=== PATIENT | male | born 1955 | race Hispanic/Latino ===

== ENCOUNTER 2017-05-18 16:12 | Emergency (ER) | payer OTHER ==
[~2017-05-18 16:12] MED LIST: CIPR-245 PO
[2017-05-18] MEDS ORDERED: ONDANSETRON HCL 4 MG/2 ML VIAL ONE (16:38)
[2017-05-18 16:55] LABS: BASOPHILS % (AUTO) 0.6 % (0.0-5.0); EOSINOPHILS % (AUTO) 0.2 % (0.0-8.0); HEMATOCRIT 31.4 % (42-54); LYMPHOCYTES % (AUTO) 9.2 % (21.0-51.0); MEAN CORPUSCULAR HEMOGLOBIN 21.6 pg (27.0-33.0); MEAN CORPUSCULAR HGB CONC 32.8 g/dL (32.0-36.0); MONOCYTES % (AUTO) 11.7 % (3.0-13.0); NEUTROPHILS % (AUTO) 78.3 % (40.0-77.0); NUCLEATED RED BLOOD CELLS 0.1 % (0.0-0.19); PLATELET COUNT (AUTO) 350 K/uL (130-400); RED BLOOD CELL COUNT(AUTO) 4.75 MIL/uL (4.50-6.20); RED CELL DISTRIBUTION WIDTH 19.9 % (11.0-15.5); WHITE BLOOD COUNT (AUTO) 9.3 K/uL (4.8-10.8)
[2017-05-18 17:10] LABS: CREATININE 0.8 mg/dL (0.5-1.5); POTASSIUM 4.1 mmol/L (3.5-5.1)
[2017-05-18 17:14] LABS: ALBUMIN 3.3 g/dL (3.5-5.0); BILIRUBIN,TOTAL 0.7 mg/dL (0.2-1.0)
[2017-05-18 17:48] LABS: CREATINE KINASE MB < 0.5 ng/mL (0.5-3.6); CREATINE KINASE, TOTAL 22 U/L (21-232)
== END 2017-05-18 21:07 | disposition home or self-care (01) ==
LOC: EDH 16:12
DX: E86.0 Dehydration (principal); I10 Essential (primary) hypertension; Z85.46 Personal history of malignant neoplasm of prostate; Z87.891 Personal history of nicotine dependence
CPT/HCPCS: 36415; 71045; 80053; 82550; 82553; 84484; 85025; 93005; 96361; 96374; 99285; J2405

== ENCOUNTER 2017-05-24 17:57 | Observation (INO) | payer OTHER ==
[~2017-05-24] VITALS: Ht 172.7 cm; Wt 77.8 kg
[2017-05-24] MEDS ORDERED: ONDANSETRON HCL MDV 20ML 2 MG/ML VIAL ONE ×2 (18:47→21:32)
[2017-05-24] MEDS ORDERED: MORPHINE SULFATE 4 MG/1ML SYG ONE (18:48)
[2017-05-24 19:01] LABS: BASOPHILS % (AUTO) 0.8 % (0.0-5.0); EOSINOPHILS % (AUTO) 0.4 % (0.0-8.0); HEMATOCRIT 31.7 % (42-54); MEAN CORPUSCULAR HEMOGLOBIN 21.6 pg (27.0-33.0); MEAN CORPUSCULAR HGB CONC 32.9 g/dL (32.0-36.0); MEAN CORPUSCULAR VOLUME 65.8 fL (79-99); MONOCYTES % (AUTO) 8.5 % (3.0-13.0); NEUTROPHILS % (AUTO) 78.3 % (40.0-77.0); NUCLEATED RED BLOOD CELLS 0.1 % (0.0-0.19); PLATELET COUNT (AUTO) 440 K/uL (130-400); RED BLOOD CELL COUNT(AUTO) 4.82 MIL/uL (4.50-6.20); RED CELL DISTRIBUTION WIDTH 19.3 % (11.0-15.5); WHITE BLOOD COUNT (AUTO) 9.9 K/uL (4.8-10.8)
[2017-05-24 19:10] LABS: CREATININE 0.6 mg/dL (0.5-1.5); POTASSIUM 3.6 mmol/L (3.5-5.1)
[2017-05-24] MEDS ORDERED: IOPAMIDOL-370 75 ML VIAL IV ONE (19:14)
[2017-05-24 19:15] LABS: ALBUMIN 3.3 g/dL (3.5-5.0); BILIRUBIN,TOTAL 0.4 mg/dL (0.2-1.0); TOTAL PROTEIN, SERUM 8.3 g/dL (6.0-8.3)
[2017-05-24 20:43] LABS: APPEARANCE,URINE Clear (CLEAR); BILIRUBIN,URINE Negative (NEGATIVE); COLOR,URINE Yellow (YELLOW); GLUCOSE, URINE (UA) Negative (NEGATIVE); KETONES,URINE Negative (NEGATIVE); LEUKOCYTE ESTERASE ,URINE Negative (NEGATIVE); NITRATE,URINE Negative (NEGATIVE); OCCULT BLOOD,URINE Negative (NEGATIVE); PH,URINE 6.5 (5.0-8.0); PROTEIN,URINE Negative (NEGATIVE)
[2017-05-24] MEDS ORDERED: SODIUM CHLORIDE 0.9% 1000ML 1,000 ML IV ONE (21:32)
[2017-05-24] MEDS: FAMOTIDINE/PF 20 MG/2 ML VIAL IV SCH (22:03)
[2017-05-24] MEDS ORDERED: FAMOTIDINE/PF 20 MG/2 ML VIAL IV ONE (22:04)
[2017-05-24] MEDS ORDERED: LIDOCAINE HCL-MPF 1% 2ML VIAL IJ PRN (22:15)
[2017-05-24] MEDS ORDERED: NITROGLYCERIN 0.4 MG SL TAB SL PRN (22:15)
[2017-05-24] MEDS ORDERED: POTASSIUM CHLORIDE 20 MEQ ERTAB PO PRN (22:15)
[2017-05-24] MEDS: SODIUM CHLORIDE 0.9% 1000ML 1,000 ML IV SCH (22:15)
[2017-05-24] MEDS ORDERED: ACETAMINOPHEN 325 MG TAB PO PRN ×2 (22:15)
[2017-05-24] MEDS ORDERED: CLONIDINE HCL 0.1 MG TABLET PO PRN (22:15)
[2017-05-24] MEDS ORDERED: POTASSIUM CHLORIDE 20MEQ/100ML 100 ML IV PRN (22:15)
[2017-05-24] MEDS ORDERED: ONDANSETRON HCL 4 MG/2 ML VIAL IVP PRN (22:15)
[2017-05-24] MEDS ORDERED: POTASSIUM CHLORIDE 10% ELIXIR 20 MEQ/15 ML UDCUP PO PRN (22:15)
[2017-05-25] MEDS ORDERED: MORPHINE SULFATE 4 MG/1ML SYG ONE (02:30)
[2017-05-25 03:37] VITALS: BP 140/75
[2017-05-25] MEDS ORDERED: HYDR-4377 PO (04:15)
[2017-05-25] MEDS ORDERED: PROM12.510 PO (04:15)
[2017-05-25] MEDS ORDERED: LUBI24CA2 PO (04:15)
[2017-05-25] MEDS ORDERED: TRAM50TA4 PO (04:15)
[2017-05-25] MEDS ORDERED: TEMA15CA PO (04:15)
[2017-05-25] MEDS ORDERED: PANT40TA25 PO (04:15)
[2017-05-25] MEDS ORDERED: CYCL5TAB PO (04:15)
[2017-05-25] MEDS ORDERED: DOCU100C33 PO (04:15)
[2017-05-25] MEDS ORDERED: DICL100G31 TP (04:17)
[2017-05-25 05:18] LABS: HEMATOCRIT 25.9 % (42-54); MEAN CORPUSCULAR HEMOGLOBIN 21.5 pg (27.0-33.0); MEAN CORPUSCULAR HGB CONC 32.8 g/dL (32.0-36.0); MEAN CORPUSCULAR VOLUME 65.7 fL (79-99); PLATELET COUNT (AUTO) 340 K/uL (130-400); RED BLOOD CELL COUNT(AUTO) 3.95 MIL/uL (4.50-6.20); WHITE BLOOD COUNT (AUTO) 6.6 K/uL (4.8-10.8)
[2017-05-25 05:29] LABS: CREATININE 0.5 mg/dL (0.5-1.5); POTASSIUM 3.6 mmol/L (3.5-5.1)
[2017-05-25] MEDS: SODIUM CHLORIDE 0.9% 1000ML 1,000 ML IV SCH (05:55)
[2017-05-25 07:00] VITALS: BP 140/75
[2017-05-25] MEDS ORDERED: METOCLOPRAMIDE 10 MG/2 ML VIAL IVP SCH (07:30)
[2017-05-25] MEDS: FAMOTIDINE/PF 20 MG/2 ML VIAL IV SCH ×2 (09:14→23:50)
[2017-05-25 11:00] VITALS: BP 139/72
[2017-05-25] MEDS ORDERED: TEMAZEPAM 15 MG CAPSULE PO PRN (11:15)
[2017-05-25] MEDS ORDERED: PROMETHAZINE HCL 25 MG TABLET PO PRN (11:15)
[2017-05-25] MEDS ORDERED: CYCLOBENZAPRINE HCL 10 MG TABLET PO PRN (11:15)
[2017-05-25] MEDS ORDERED: TRAMADOL HCL 50 MG TABLET PO PRN (11:15)
[2017-05-25] MEDS: HYDROCODONE/ACETAMINOPHEN 5/325 MG TAB PO PRN (11:48)
[2017-05-25] MEDS: ONDANSETRON HCL MDV 20ML 2 MG/ML VIAL IVP PRN (14:31)
[2017-05-25 15:50] VITALS: BP 141/75
[2017-05-25] MEDS: MORPHINE SULFATE 2 MG/ML 1ML SYG IVP PRN ×2 (17:55→23:50)
[2017-05-25 19:48] VITALS: BP 136/76
[2017-05-25] MEDS: LUBIPROSTONE 24 MCG CAP PO SCH (21:00)
[2017-05-25] MEDS: DOCUSATE SODIUM 100 MG CAP PO SCH (23:51)
[2017-05-26] VITALS: BP 132/70
[2017-05-26 04:00] VITALS: BP 160/88
[2017-05-26] MEDS: HYDROCODONE/ACETAMINOPHEN 5/325 MG TAB PO PRN ×2 (04:28→09:08)
[2017-05-26 04:50] LABS: CREATININE 0.5 mg/dL (0.5-1.5); POTASSIUM 3.4 mmol/L (3.5-5.1)
[2017-05-26 07:30] VITALS: BP 137/77
[2017-05-26] MEDS ORDERED: **HM** DICLOFENAC GEL TP PRN (09:00)
[2017-05-26] MEDS: LUBIPROSTONE 24 MCG CAP PO SCH (09:08)
[2017-05-26] MEDS: FAMOTIDINE/PF 20 MG/2 ML VIAL IV SCH (09:09)
[2017-05-26] MEDS: DOCUSATE SODIUM 100 MG CAP PO SCH (09:11)
[2017-05-26] MEDS: ONDANSETRON HCL MDV 20ML 2 MG/ML VIAL IVP PRN (09:14)
[2017-05-26] MEDS: MORPHINE SULFATE 2 MG/ML 1ML SYG IVP PRN (10:22)
[2017-05-26] MEDS ORDERED: ONDA4TAB4 PO (10:51)
[2017-05-26 11:00] VITALS: BP 136/76
== END 2017-05-26 13:45 | disposition home or self-care (01) ==
LOC: EDH 17:57 → EDHIP 21:42 → 3CH 05-25 03:37
PROVIDERS: ADMIT Family Medicine; ATTEND Family Medicine
DX: R11.2 Nausea with vomiting, unspecified (principal); R53.1 Weakness; G89.29 Other chronic pain; M54.9 Dorsalgia, unspecified; I10 Essential (primary) hypertension; Z85.46 Personal history of malignant neoplasm of prostate; Z87.891 Personal history of nicotine dependence; Z80.42 Family history of malignant neoplasm of prostate; Z87.442 Personal history of urinary calculi; Z90.79 Acquired absence of other genital organ(s); C79.51 Secondary malignant neoplasm of bone; C61 Malignant neoplasm of prostate; G89.4 Chronic pain syndrome; F41.9 Anxiety disorder, unspecified
CPT/HCPCS: 36415 ×3; 71045; 74177; 74230; 80048 ×2; 80053; 81003; 83690; 84484; 85025; 85027; 86677; 92611; 93005; 96361; 96374; 96375; 96376 ×2; 99285; G0378 ×40; J2270 ×2; J3490 ×4; J7030 ×2; Q0169; Q9967; J2765